=== PATIENT | female | born 1985 | race Caucasian/White ===

== ENCOUNTER → 2016-12-21 | Outpatient (CLI) | payer OTHER ==
--- NOTE | 2016-12-22 08:29 | KCIC ---
PROCEDURE MRI lumbar spine without contrast. HISTORY Low back pain and right leg pain for 1 year. Pain after childbirth. TECHNIQUE Sagittal T1, axial T1, axial T2, axial FLAIR, axial T2 gradient, coronal T2, and diffusion imaging with ADC map were performed. COMPARISON None. FINDINGS There is no malalignment. There is no worrisome marrow lesion. There is disc desiccation, minimal at L4-L5 and mild at L5-S1. There is mild loss of disc height at L5-S1. The conus medullaris is normal in signal intensity and in position. The numbering system assumes 5 lumbar type vertebral bodies. Findings by individual level are as follows: L1-L2 through L3-L4: There is no canal or foraminal compromise. L4-L5: There is a mild disc bulge. There is a central protrusion measuring 12 millimeters at its base and 3 millimeters in height. There is facet hypertrophy. There is mild canal stenosis. Midline AP diameter of the thecal sac is 9 millimeters. There is no foraminal narrowing. L5-S1: There is a minimal disc bulge. There is a broad-based central herniation which may minimally migrate superiorly, with annular fissure. Herniation measures 21 millimeters transverse, 5 millimeters AP, and 9 millimeters craniocaudal. There is mild to moderate canal stenosis, midline AP diameter of the thecal sac 7 millimeters. There is mild left and moderate right lateral recess narrowing, right S1 nerve root is flattened. There is also mild foraminal narrowing. Sacral perineural cyst is noted. IMPRESSION Degenerative changes in the lumbar spine at L5-S1 and L4-L5. Electronically signed by: Eliseo King MD (December 22, 2016 08:27:31)
--- NOTE | 2016-12-22 08:33 | KCIC ---
PROCEDURE MRI sacrum. HISTORY Low back pain and right leg pain. TECHNIQUE 3 plane T1 and 3 plane fat suppressed T2 sequences are provided. COMPARISON None. FINDINGS There is no sacral lesion or signal abnormality. Sacral perineural cyst is noted. 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 A small amount of fluid is noted in the cul de sac. 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 Electronically signed by: Eliseo King MD (December 22, 2016 08:31:59)
== END | disposition home or self-care (01) ==
LOC: KCIC MRI 16:44
DX: M47.896 Other spondylosis, lumbar region (principal); M79.604 Pain in right leg
CPT/HCPCS: 72148; 72195